=== PATIENT | male | born 1955 | race Caucasian/White ===

== ENCOUNTER 2017-02-24 10:59 | Inpatient (IN) ==
[2017-02-24 15:10] LABS: Basophils % 0.2 % (0.0-0.8); Eosinophils # 0.1 10*3/uL (0.0-0.87); Eosinophils % 0.7 % (0.00-10.9); Hemoglobin 15.5 GM/DL (14.0-18.0); Immature Granulocytes % 0.3 %; Immature Granulocytes Absolute 0.03 #; Lymphocytes # 2.4 10*3/uL (1.4-4.0); Lymphocytes % 25.9 % (21.2-54.2); Mean Corpuscular HGB Conc 33.7 GM/DL (32-36); Mean Corpuscular Hemoglobin 30 PG (27-34); Mean Corpuscular Volume 89.3 FL (87-102); Mean Platelet Volume 9.9 FL (9.6-12.0); Monocytes # 0.8 10*3/uL (0.11-0.8); Monocytes % 8.7 % (1.7-12.7); Neutrophils # 5.9 10*3/uL (1.4-7.4); Neutrophils % 64.2 % (38.7-73.9); Platelet Count 183 T/CUMM (130-400); Red Blood Count 5.15 MC/CUMM (3.8-5.5); Red Cell Distribution Width 12.7 % (9.3-17.3); White Blood Count 9.2 T/CUMM (4-12)
[2017-02-24 15:40] LABS: Albumin 4.1 G/DL (3.4-5.0); Calcium 8.8 MG/DL (8.5-10.1); Osmolality,Calculated 278.4 MOS/KG (273-304); Potassium 4.1 MMOL/L (3.5-5.1); Total Protein 7.2 G/DL (6.4-8.3)
[2017-02-24 15:45] LABS: PT Patient Result 10.9 SECS
--- NOTE | 2017-02-24 17:18 | CT Report ---
CT abdomen pelvis Indication: Abdominal pain periumbilical area with possible hernia Comparison: None available Technique: Axial CT imaging of the abdomen and pelvis is performed with intravenous and oral contrast. Contrast dose is 100 cc of Omnipaque 350. Findings: Cardiac and lung bases are within normal limits CT abdomen: The liver spleen pancreas and adrenal glands are normal in size and enhancement. No evidence of focal lesion is demonstrated in these solid organs. Kidneys are normal in size and enhancement. No evidence of hydronephrosis or nephrolithiasis is seen. Distended loops of proximal small bowel are present with umbilical hernia present containing a loop of small bowel. The distal small bowel caliber is normal from this point. No wall thickening or adjacent inflammatory change is seen. No evidence of free fluid or free air is present. CT pelvis: The pelvic bowel appears within normal limits. Bladder shows no evidence of abnormality. The pelvic organs show no evidence of abnormality Impression: Umbilical hernia with distended loops of small bowel proximal to the hernia consistent with at least partial obstruction. This CT exam was performed using one or more the following dose reduction techniques: Automated exposure control, adjustment of the MA and/or KV according to patient size, or use of iterative reconstruction technique. PROCEDURE INTERPRETED AT [facility] DEPARTMENT OF RADIOLOGY Final Report Signed by: Dr. Derik Miller
[2017-02-24] MEDS ORDERED: PROMETHAZINE INJ 25 MG in SODIUM CHLORIDE 0.9% 50 ML IV STA (18:05)
[2017-02-24] MEDS ORDERED: MORPHINE 2 MG/1 ML SYRINGE IV STA (18:05)
[2017-02-24] MEDS ORDERED: SODIUM CHLORIDE 0.9% 500 ML IV STA (18:05)
[2017-02-24] MEDS ORDERED: MORPHINE 2 MG/1 ML SYRINGE ONE (18:10)
[2017-02-24] MEDS ORDERED: PROMETHAZINE 25 MG/1 ML VIAL ONE (18:10)
--- NOTE | 2017-02-24 19:10 | General Surg History&Physical ---
Assessment and Plan (1) Incarcerated incisional hernia Status: Acute Assessment and plan: Impression: Incarcerated incisional hernia Plan: I discussed options with the patient but feel that given his history and the CT scan showing small bowel obstruction and the hernia that we should proceed with repair. Discussed the option of waiting until Eliquis wears off but that he might have or develop bowel compromise which could cause further deterioration in his health. We discussed the procedure counts performed and the anticipated recovery. Risk of the procedure including bleeding, infection, damage to surrounding structures, need for further surgery, mesh infection, higher risk of bleeding due to the Eliquis, possible need for bowel resection and possible anastomotic leak were all discussed in detail. He would like to proceed with surgery as soon as possible. Current Visit: Yes History of Present Illness Chief complaint: Abdominal pain, constipation History of present illness: Mr. Jones is a 61 year old male who had a laparoscopic cholecystectomy in the distant past. He says that his incision opened up same day he had surgery and required re-stapling. He noticed a hernia near his umbilicus approximately 2 years ago but did not seek any treatment. Several days ago he became more distended and constipated and took some magnesium citrate which only might his pain worsen. Has not had a normal bowel movement in 4-5 days. He has a lot of nausea but has had no vomiting thus far. His pain is located near the umbilicus. He has a history of A. fib and is on Eliquis. His last dose was early this morning. Home Medications Medication Instructions Recorded Confirmed Type Sotalol HCl [Sotalol] 160 mg PO BID #60 tablet 04/22/15 02/24/17 Rx Apixaban [Eliquis] 1 tablet PO BID 04/24/15 02/24/17 History Diltiazem Cd Cap [Cardizem CD] 120 mg PO BID #60 capsule 04/26/15 02/24/17 Rx Allergies Allergy/AdvReac Type Severity Reaction Status Date / Time Cephalosporins Allergy HIVES Verified 02/24/17 11:35 Medical,Surgical,& Family Hx - Medical History Cardio: History of: Cardiac Dysrhythmia (AFIB), CHF, Hypertension No history of: [place] Psychological: History of: Psychiatric/Substance Abuse Tx (alcohol abuse) Neurology: No history of: Seizures Respiratory: History of: Obstructive Sleep Apnea (uses cpap) Genitourinary: History of: Prostate Problems (bph) Gastrointestinal: History of: GERD, GI Problems (constipation) No history of: Hepatitis, Liver Problems, Polyps Hematology: No history of: Blood Transfusion Reaction Other: History of: Miscellaneous Medical Problems (sleep apnea) No history of: Anesthesia Reactions (headache, nausea), Cancer - Surgical History Cardiac Surgeries: Patient Denies: Cardiac Catheterization Abdominal Surgeries: Surgical HX of: Cholecystectomy, EGD Patient denies: Appendectomy, Hernia Repair Orthopedic Surgeries: Patient denies;: Orthopedic Surgery - Family History Family History: Reports;: Family Cancer (MOTHER, FATHER), Family Heart Disease ( MOTHER), Family Stroke (FATHER) Denies;: Family Diabetes - Social History Smoking Status: Former smoker Frequency of Alcohol Use: None Type of Drug Use: None Exam - Constitutional Vitals: Period Temp Pulse Resp BP Sys/[place] Pulse Ox Last 24 Hr 98.3 F-98.3 F 82-82 18-18 125-125/83-83 95 General appearance: no acute distress - Head Head exam: Present: normocephalic - ENT Mouth exam: Present: normal external inspection - Neck Neck exam: Present: normal inspection - Respiratory Respiratory exam: Present: clear to auscultation bilaterally - Cardiovascular Cardiovascular exam: Present: RRR (Not currently in A. fib) - GI/Abdominal GI/Abdominal exam: Present: soft (No peritoneal signs. Very tender just above the umbilicus. There is some slight redness to the skin in this area. An incarcerated hernia is appreciated and unable to be reduced. Possibly mildly distended but he is obese and difficult to fully appreciate that.) - Extremities Exam Extremities exam: Present: normal inspection - Back Exam Back exam: Present: normal inspection - Neurological Exam Neurological exam: Present: alert, oriented X3 Speech: Present: normal - Skin Skin exam: Present: normal color 12 point system: reviewed and no additional remarkable complaints except as stated (He denies chest pain and shortness of breath.) Results - Labs CBC & BMP: 02/24/17 14:58 02/24/17 14:58 Lab Results: I have reviewed the past 24 hour labs
--- NOTE | 2017-02-24 20:00 | Emergency Department Note ---
Wilman Ackerman Brittany, am scribing for, and in the presence of, Soren Haynes M.D. 15:00. Dallas Ackerman Howard T, M.D., personally performed the services described in this documentation, ascribed by Aziza Stovall in my presence, and it is both accurate and complete [id number] . Arrival - Arrival Chief Complaint: Abdominal / Flank Pain Stated Complaint: bowel problem,hernia twisted severe abdominal pain ED Nursing Triage Note: PT C/O MID ABD PAIN SINCE YESTERDAY MORNING. STATES PAIN COMES IN WAVES. PT HAS KNOWN HERNIA. STATES HE HAS NOT HAD BM SINCE MONDAY. PT DRANK MAG CITRATE LAST NIGHT WITH NO RESULTS. Mode of Arrival: Ambulatory Limitations: No Limitations Source: Patient Time Seen by Provider: 02/24/17 14:45 - History of Present Illness HPI Narrative: This is a 61 y/o white male, who presents to the ED with c/o abdomen pain which started yesterday. He localizes the abdomen pain to the umbilical area. He reports the abdomen pain comes in "waves". He denies vomiting but notes nausea. He states he states he has not had a BM since last. He drank a whole bottle of Mag Citrate last night and had no results. He states this morning he had a small BM and has 2 others since the first. He states he has had similar Sx in the past and was told to "drink a bottle of something" and the Sx resolved after. PT has no other complaints/pain in the ED at this time. Pt has a PMHx of CHF, HTN, obstructive sleep apnea, BPH, A-fib, and GERD. Pt has had a cholecystectomy, EGD, and colonoscopy. Pt has a family medical Hx of cancer, heart disease, and stroke. Pt is a former smoker. Consistency: intermittent Severity: moderate, similar to previous episodes Allergies/Adverse Reactions: Allergies Allergy/AdvReac Type Severity Reaction Status Date / Time Cephalosporins Allergy HIVES Verified 02/24/17 11:35 Home Medications: Home Medications Medication Instructions Recorded Confirmed Type Sotalol HCl [Sotalol] 160 mg PO BID #60 tablet 04/22/15 02/24/17 Rx Apixaban [Eliquis] 1 tablet PO BID 04/24/15 02/24/17 History Diltiazem Cd Cap [Cardizem CD] 120 mg PO BID #60 capsule 04/26/15 02/24/17 Rx Review of System - Review of System 12 point system: reviewed and no additional remarkable complaints except as stated - Review of System Gastrointestinal: Present: abdominal pain, nausea, constipation. Absent: vomiting Medical,Surgical,& Family Hx - Medical History Cardio: History of: Cardiac Dysrhythmia (AFIB), CHF, Hypertension No history of: [place] Psychological: History of: Psychiatric/Substance Abuse Tx (alcohol abuse) Neurology: No history of: Seizures Respiratory: History of: Obstructive Sleep Apnea (uses cpap) Genitourinary: History of: Prostate Problems (bph) Gastrointestinal: History of: GERD, GI Problems (constipation) No history of: Hepatitis, Liver Problems, Polyps Hematology: No history of: Blood Transfusion Reaction Other: History of: Miscellaneous Medical Problems (sleep apnea) No history of: Anesthesia Reactions (headache, nausea), Cancer - Surgical History Cardiac Surgeries: Patient Denies: Cardiac Catheterization Abdominal Surgeries: Surgical HX of: Cholecystectomy, EGD Patient denies: Appendectomy, Hernia Repair Orthopedic Surgeries: Patient denies;: Orthopedic Surgery - Family History Family History: Reports;: Family Cancer (MOTHER, FATHER), Family Heart Disease ( MOTHER), Family Stroke (FATHER) Denies;: Family Diabetes - Social History Smoking Status: Former smoker Frequency of Alcohol Use: None Type of Drug Use: None Exam Vital Signs: Vital Signs Temperature 98.3 F 02/24/17 15:11 Pulse Rate 82 02/24/17 15:11 Respiratory Rate 18 02/24/17 15:11 Blood Pressure 125/83 02/24/17 15:11 O2 Sat by Pulse Oximetry 95 02/24/17 11:32 - General General appearance: alert, in no apparent distress - Head Head exam: Present: atraumatic, normocephalic, normal inspection - Eye Eye exam: Present: normal appearance, PERRL, EOMI. Absent: scleral icterus, nystagmus, miosis, mydriasis - ENT ENT exam: Present: normal exam, normal oropharynx, mucous membranes moist, TM's normal bilaterally, normal external ear exam - Neck Neck exam: Present: normal inspection, full ROM, trachea midline. Absent: tenderness, meningismus, lymphadenopathy, thyromegaly - Chest Chest inspection: Present: normal inspection, symmetric chest wall rise. Absent : tenderness, rash, abscess - Respiratory Respiratory exam: Present: normal lung sounds bilaterally. Absent: rales, respiratory distress, rhonchi, stridor, wheezes - Cardiovascular Cardiovascular exam: Present: regular rate, normal rhythm, normal heart sounds. Absent: murmur, rubs, gallop, clicks, JVD - Abdominal Exam Abdominal exam: Present: soft, tenderness (Paraumbilical tenderness), normal bowel sounds, hernia (paraumbilical hernia). Absent: distention, guarding, rebound, rigidity - Rectal Exam Rectal exam: Present: deferred - Extremities Exam Extremities exam: Present: normal inspection, full ROM, normal capillary refill. Absent: tenderness, pedal edema, joint swelling, calf tenderness - Back Exam Back exam: Present: normal inspection, full ROM. Absent: tenderness, muscle spasm, rashes - Neurological Exam Neurological exam: Present: alert, oriented X3, CN II-XII intact. Absent: motor sensory deficit - Psychiatric Psychiatric exam: Present: normal affect, normal mood. Absent: depressed, agitated, anxious, flat affect, manic - Skin Skin exam: Present: warm, dry, intact, normal color. Absent: rash, cyanosis, diaphoresis, erythema, pallor, mottled Course Course Narrative: Medical decision making: History exam consistent with hernia causing partial small bowel per CT report therefore general surgeon Dr. Ortiz will evaluate the patient for continued care and disposition. Results - Labs CBC & BMP: 02/24/17 14:58 02/24/17 14:58 Lab Results: I have reviewed the patients labs Labs: Laboratory Tests 02/24/17 02/24/17 02/24/17 14:58 14:58 14:58 WBC 9.2 RBC 5.15 Hgb 15.5 Hct 46.0 MCV 89.3 MCH 30 MCHC 33.7 RDW 12.7 Plt Count 183 MPV 9.9 Neut % (Auto) 64.2 Lymph % (Auto) 25.9 [place] % (Auto) 8.7 Eos % (Auto) 0.7 Baso % (Auto) 0.2 Neut # (Auto) 5.9 Lymph # (Auto) 2.4 [place] # (Auto) 0.8 Eos # (Auto) 0.1 Baso # (Auto) 0.0 Immature Gran % 0.3 Nucleated RBC % 0.0 Immature Gran # 0.03 Nucleated RBCs # 0.00 INR 1.0 PT Patient/Control Mix 10.9 Sodium 140 Potassium 4.1 Chloride 104 Carbon Dioxide 30 Anion Gap 10.1 BUN 9 Creatinine 1.10 GFR Calculation 115 BUN/Creatinine Ratio 8.00 Glucose 116 H Calculated Osmolality 278.4 Calcium 8.8 Total Bilirubin 1.00 AST 17 ALT 21 Alkaline Phosphatase 59 Total Protein 7.2 Albumin 4.1 Globulin 3.1 Albumin/Globulin Ratio 1.3 Lipase 94.0 - Diagnostic Findings Procedure: CT Abdomen and Pelvis: report reviewed by me (Umbilical hernia with distended loops of small bowel approximal to the hernia consistent with at least partial obstruction. ) Disposition Clinical Impression: Small bowel obstruction, Umbilical hernia Case discussed with: patient Disposition: Still a Patient Condition: Stable Time of Disposition: 18:06
[2017-02-24] MEDS ORDERED: ONDANSETRON 4 MG/2 ML VIAL ONE (20:05)
[2017-02-24] MEDS ORDERED: DEXAMETHASONE 10 MG/1 ML VIAL ONE (20:05)
[2017-02-24] MEDS ORDERED: LIDOCAINE 1% 5 ML VIAL ONE (20:05)
[2017-02-24] MEDS ORDERED: ROCURONIUM 100 MG/10 ML VIAL IV ONE (20:05)
[2017-02-24] MEDS ORDERED: GLYCOPYRROLATE 0.4 MG/2 ML VIAL ONE (20:05)
[2017-02-24] MEDS ORDERED: NEOSTIGMINE 10 MG/10 ML VIAL ONE (20:05)
[2017-02-24] MEDS ORDERED: PHENYLEPHRINE 1 MG/10 ML SYRINGE IV ONE (20:05)
[2017-02-24] MEDS ORDERED: PROPOFOL 200 MG/20 ML VIAL IV ONE (20:05)
[2017-02-24] MEDS ORDERED: SUCCINYLCHOLINE 200 MG/10 ML VIAL ONE (20:05)
[2017-02-24] MEDS ORDERED: ceFAZolin 1,000 MG VIAL ONE (20:35)
[2017-02-24] MEDS ORDERED: ACETAMINOPHEN 325 MG TABLET PO PRN (21:39)
[2017-02-24] MEDS ORDERED: MORPHINE 2 MG/1 ML SYRINGE IV PRN (21:39)
[2017-02-24] MEDS ORDERED: ONDANSETRON 4 MG/2 ML VIAL IV PRN (21:39)
[2017-02-24] MEDS: LACTATED RINGERS 1,000 ML IV SCH (21:45)
--- NOTE | 2017-02-24 21:51 | Operative Note ---
Date of procedure: 02/24/17 Pre-op diagnosis: SBO secondary to incarcerated incisional hernia Post-op diagnosis: same Procedure: Procedure performed: #1 repair of incarcerated incisional hernia #2 implantation of program mesh (15 x 9 cm) Procedure in detail: After informed consent was obtained, patient was taken operating suite and laid supine on the operating table. After general anesthesia was induced Loco catheter was placed and the abdomen was prepped and draped in usual sterile fashion. After procedural pause incision was made around the umbilicus and dissection carried down through skin and soft tissue. The hernia sac was encountered just above the umbilicus and it was dissected free from the surrounding subcutaneous tissue as well as the umbilicus. I dissected down to the hernia sac fascial edge border. Next the hernia sac was opened and the contents examined. There was some mesentery along with a small knuckle of small bowel within the sac. The bowel appeared healthy and viable. There is an adhesion from the mesentery to the hernia sac that was lysed. I was then able to place the contents back to within the abdominal cavity. I removed the excess sac and passed it off the field and closed the remaining sac with 3-0 Vicryl suture. The defect was measured and was approximately 3 cm in diameter. The preperitoneal space was then developed circumferentially just under the fascia taking care to avoid any entrance into the abdominal cavity. Once the preperitoneal space was adequately developed a 15 x 9 cm piece of pro- neurology tech mesh was brought onto the field and placed in the preperitoneal space with the sticky side down. There was excellent coverage of the defect. A 10 Kis[place]ili flat Antony drain was then placed over the mesh. I then dissected the fascia away from the subcutaneous tissue circumferentially and closed the defect using #1 interrupted Prolene [id number] sutures. There was excellent hemostasis throughout the procedure. All oozing was treated with electrocautery. Wound was thoroughly irrigated and suctioned. The umbilicus was tacked back down to the fascia using 3-0 Vicryl. Incision closed with ricky. Drain was secured with 2-0 nylon suture. Sterile dressings and abdominal binder placed. Patient was extubated and taken to recovery room in stable condition. All lap and needle counts correct at the end of the case. Anesthesia: GETA Surgeon / Physician: Con Wynne Estimated blood loss: other (10 cc) Specimens: other (Hernia sac) Condition: stable Disposition: PACU Results - Labs CBC & BMP: 02/24/17 14:58 02/24/17 14:58 Discharge Plan - Discharge Data Disposition: Still a Patient - Discharge Medications No Action Sotalol HCl [Sotalol] 160 mg PO BID #60 tablet Apixaban [Eliquis] 1 tablet PO BID Diltiazem Cd Cap [Cardizem CD] 120 mg PO BID #60 capsule - Follow Up or Referral - Forms/Instructions
--- NOTE | 2017-02-24 22:02 | Anesthesia Post-Op ---
Anesthesia Post OP - Post Ansesthetic Evaluation Patient seen in post op: Yes Resp: within normal limits CV: within normal limits Mental: within normal limits Temp: within normal limits [id number]: within normal limits Nausea and Vomiting: within normal limits Pain: within normal limits
[2017-02-24] MEDS ORDERED: MIDAZOLAM 2 MG/2 ML VIAL ONE (22:05)
[2017-02-24] MEDS ORDERED: SCOPOLAMINE 1.5 MG PATCH TRANSDERM ONE (22:05)
[2017-02-24] MEDS ORDERED: fentaNYL 100 MCG/2 ML VIAL ONE (22:05)
[2017-02-24] MEDS ORDERED: SEVOFLURANE 1 UNIT/15 MINUTE INH ONE (22:05)
[2017-02-24] MEDS ORDERED: ACETAMINOPHEN 1,000 MG/100 ML VIAL IV ONE (22:06)
[2017-02-24] MEDS ORDERED: LACTATED RINGERS 3,000 ML IV ONE (22:06)
[2017-02-24 22:48] LABS: Apearance,Urine CLEAR (Clear); Bilirubin,Urine Negative (Negative); Blood, Urine Negative (Negative); Glucose,Urine (UA) Negative (Negative); Ketones,Urine Negative (Negative); Nitrite,Urine Negative (Negative); Protein,Urine Negative; RBC,Urine 1 /HPF (0-4); Squamous Epithelial Cell,Urine Occasional /HPF (0-10); Urine Color Yellow (Yellow); Urine Specific Gravity 1.029 (1.001-1.035); Urine Urobilinogen < 2.0 EU/DL (0.2-1.0); WBC,Urine <1 /HPF (0-6)
[2017-02-25] MEDS: KETOROLAC 30 MG/1 ML VIAL IV SCH ×4 (00:31→18:41)
[2017-02-25] MEDS: LACTATED RINGERS 1,000 ML IV SCH ×2 (04:00→21:18)
[2017-02-25 08:15] LABS: Hematocrit 43.3 VOL% (42.0-52.0); Hemoglobin 14.8 GM/DL (14.0-18.0); Immature Granulocytes % 0.4 %; Immature Granulocytes Absolute 0.04 #; Lymphocytes # 1.1 10*3/uL (1.4-4.0); Lymphocytes % 10.7 % (21.2-54.2); Mean Corpuscular HGB Conc 34.2 GM/DL (32-36); Mean Corpuscular Hemoglobin 31 PG (27-34); Mean Corpuscular Volume 89.1 FL (87-102); Mean Platelet Volume 10.2 FL (9.6-12.0); Monocytes # 0.2 10*3/uL (0.11-0.8); Monocytes % 1.6 % (1.7-12.7); Neutrophils # 8.6 10*3/uL (1.4-7.4); Neutrophils % 87.3 % (38.7-73.9); Platelet Count 175 T/CUMM (130-400); Red Blood Count 4.86 MC/CUMM (3.8-5.5); Red Cell Distribution Width 12.8 % (9.3-17.3); White Blood Count 9.8 T/CUMM (4-12)
[2017-02-25 08:36] LABS: Calcium 8.3 MG/DL (8.5-10.1); Osmolality,Calculated 280.4 MOS/KG (273-304); Potassium 4.6 MMOL/L (3.5-5.1)
--- NOTE | 2017-02-25 10:18 | Cardiology Consult Note ---
Assessment and Plan (1) Atrial fibrillation Status: Acute Assessment and plan: 1. 61-year-old significant overweight WF with hypertension, and apparent persistent atrial fibrillation (he was cardioverted successfully June 2016 , but reports he converted back 2 days later atrial fibrillation, has not followed with Dr. bruce since), he is status post emergency surgery for ventral hernia with bowel obstruction last night performed approximate 12 hours after his last Eliquis dose (on 5 mg twice daily) without evidence of significant bleeding problems. 2. He is n.p.o. 3. Resume Eliquis 5 mg twice daily when felt safe from a postsurgical standpoint. This will be more than another 24-48 hours, would give low-dose Lovenox 40 mg daily. 4. September 2014 he had EF 54% by myocardial scan (no ischemia), and EF 45-50% by echo 5. JORGE, but reports he is using his CPAP regularly. 6. History of noncompliance, particularly is not followed up. He would benefit from seeing Dr. penaloza in the weeks after discharge. 7. He is probably a reasonable candidate for atrial fibrillation ablation as he feels much better when he is in rhythm 8. If he develops RVR, and cannot take p.o. would start diltiazem infusion as per protocol. He could be transferred to telemetry if needed to facilitate this. 9. His rhythm is irregular and I presume he is in atrial fibrillation; check EKG to confirm. Current Visit: Yes (2) Obstructive sleep apnea Status: Acute Current Visit: No (3) Chronic hypertension Status: Chronic Current Visit: No (4) Chronic anticoagulation Status: Chronic Current Visit: No (5) Small bowel obstruction Status: Acute Current Visit: Yes History of Present Illness - Consult Narrative History of present illness: Mr. Jones is a 61 year old male previously followed by Dr. penaloza, although he is not followed up with him since June 2016. He had cardioversion at that time he was on sotalol and Eliquis. He reports that he converted back to atrial fibrillation 2 days after his cardioversion at that time. However he is continued on Eliquis and sotalol. He has had a ventral hernia but developed obstructive requiring urgent surgery last night. He had last had Eliquis 12 hours before but apparently has not had any significant bleeding from surgery. He is supine and n.p.o. currently. He is having no chest pain shortness of breath or palpitations. He did say he felt better when he was in rhythm. CC: Con Lerma MD - Home Medications and Allergies Home Medications: Home Medications Medication Instructions Recorded Confirmed Type Sotalol HCl [Sotalol] 160 mg PO BID #60 tablet 04/22/15 02/24/17 Rx Apixaban [Eliquis] 1 tablet PO BID 04/24/15 02/24/17 History Diltiazem Cd Cap [Cardizem CD] 120 mg PO BID #60 capsule 04/26/15 02/24/17 Rx Allergies/Adverse Reactions: Allergies Allergy/AdvReac Type Severity Reaction Status Date / Time Cephalosporins Allergy HIVES Verified 02/24/17 11:35 Medical,Surgical,& Family Hx - Medical History Cardio: History of: Cardiac Dysrhythmia (AFIB), CHF, Hypertension No history of: [place] Psychological: History of: Psychiatric/Substance Abuse Tx (alcohol abuse) Neurology: No history of: Seizures Respiratory: History of: Obstructive Sleep Apnea (uses cpap) Genitourinary: History of: Prostate Problems (bph) Gastrointestinal: History of: GERD, GI Problems (constipation) No history of: Hepatitis, Liver Problems, Polyps Hematology: No history of: Blood Transfusion Reaction Other: History of: Miscellaneous Medical Problems (sleep apnea) No history of: Anesthesia Reactions (headache, nausea), Cancer - Surgical History Cardiac Surgeries: Patient Denies: Cardiac Catheterization Abdominal Surgeries: Surgical HX of: Cholecystectomy, EGD Patient denies: Appendectomy, Hernia Repair Orthopedic Surgeries: Patient denies;: Orthopedic Surgery - Family History Family History: Reports;: Family Cancer (MOTHER, FATHER), Family Heart Disease ( MOTHER), Family Stroke (FATHER) Denies;: Family Diabetes - Social History Smoking Status: Former smoker Frequency of Alcohol Use: None Type of Drug Use: None Physical Examination Vital Signs Temp Pulse Resp BP Pulse Ox 98.3 F 82 18 125/83 95 02/24/17 11:32 02/24/17 11:32 02/24/17 11:32 02/24/17 11:32 02/24/17 11:32 General: Present: Appears Well, No Apparent Distress Neck: Present: Supple Neck Cardiac: Present: Irregularly Regular, No Murmur Lungs: Present: Normal Exam, Clear Ascult./Percussion, Other (Supine) Abdomen: Present: Tender Extremities: Present: +1 Edema (Trace to 1+ edema in the left greater than right ) Result/EKG - Labs CBC & BMP: 02/25/17 07:57 02/25/17 07:57 Labs: Laboratory Results - last 24 hr 02/25/17 02/25/17 07:57 07:57 WBC 9.8 RBC 4.86 Hgb 14.8 Hct 43.3 MCV 89.1 MCH 31 MCHC 34.2 RDW 12.8 Plt Count 175 MPV 10.2 Neut % (Auto) 87.3 H Lymph % (Auto) 10.7 L [place] % (Auto) 1.6 L Eos % (Auto) 0.0 Baso % (Auto) 0.0 Neut # (Auto) 8.6 H Lymph # (Auto) 1.1 L [place] # (Auto) 0.2 Eos # (Auto) 0.0 Baso # (Auto) 0.0 Immature Gran % 0.4 Nucleated RBC % 0.0 Immature Gran # 0.04 Nucleated RBCs # 0.00 Sodium 140 Potassium 4.6 Chloride 106 Carbon Dioxide 28 Anion Gap 10.6 BUN 9 Creatinine 1.10 GFR Calculation 117 BUN/Creatinine Ratio 8.00 Glucose 153 H Calculated Osmolality 280.4 Calcium 8.3 L Quality Measures - VTE Contraindication to Pharmacological VTE Prophylaxis: High Risk of Bleeding
--- NOTE | 2017-02-25 10:41 | EKG Report ---
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
[2017-02-25] MEDS: SOTALOL 80 MG TABLET PO SCH ×2 (13:29→21:28)
[2017-02-25] MEDS: PANTOPRAZOLE 40 MG TABLET PO SCH (13:30)
[2017-02-25] MEDS: DILTIAZEM CD 120 MG CAPSULE PO SCH ×2 (13:30→21:28)
--- NOTE | 2017-02-25 14:55 | Event Note ---
Afebrile vital signs stable. Patient is doing very well. He is status post repair of incarcerated hernia. He is hungry. He has no nausea or vomiting. Says he overall feels much better. His abdomen is soft appropriately tender and nondistended. Incision looks good. JUAN drain with minimal serosanguineous output. Labs are okay. Will stop his IV fluids and start him on clear liquid diet. He will begin ambulating. DC his Loco. We will plan to start Eliquis tomorrow if he remains stable and there are no signs of bleeding.
[2017-02-26] MEDS: KETOROLAC 30 MG/1 ML VIAL IV SCH ×5 (00:02→23:51)
[2017-02-26 06:23] LABS: Basophils % 0.1 % (0.0-0.8); Hematocrit 43.2 VOL% (42.0-52.0); Hemoglobin 13.9 GM/DL (14.0-18.0); Immature Granulocytes % 0.6 %; Immature Granulocytes Absolute 0.09 #; Lymphocytes % 12.8 % (21.2-54.2); Mean Corpuscular HGB Conc 32.2 GM/DL (32-36); Mean Corpuscular Hemoglobin 30 PG (27-34); Mean Corpuscular Volume 92.9 FL (87-102); Mean Platelet Volume 10.8 FL (9.6-12.0); Monocytes % 6.4 % (1.7-12.7); Neutrophils # 12.4 10*3/uL (1.4-7.4); Neutrophils % 80.1 % (38.7-73.9); Platelet Count 162 T/CUMM (130-400); Red Blood Count 4.65 MC/CUMM (3.8-5.5); Red Cell Distribution Width 13.2 % (9.3-17.3); White Blood Count 15.4 T/CUMM (4-12)
[2017-02-26] MEDS: PANTOPRAZOLE 40 MG TABLET PO SCH (09:18)
[2017-02-26] MEDS: SOTALOL 80 MG TABLET PO SCH ×2 (09:18→20:58)
[2017-02-26] MEDS: APIXABAN 5 MG TABLET PO SCH ×2 (09:19→20:58)
[2017-02-26] MEDS: DILTIAZEM CD 120 MG CAPSULE PO SCH ×2 (09:19→20:58)
--- NOTE | 2017-02-26 11:19 | Cardiology Progress Note ---
Assessment and Plan (1) Atrial fibrillation Status: Acute Assessment and plan: 1. 61-year-old significant overweight WF with hypertension, and apparent persistent atrial fibrillation (he was cardioverted successfully June 2016 , but reports he converted back 2 days later atrial fibrillation, has not followed with Dr. castañeda since), he is status post emergency surgery for ventral hernia with bowel obstruction last night performed approximate 12 hours after his last Eliquis dose (on 5 mg twice daily) without evidence of significant bleeding problems. 2. He is n.p.o. 3. Resume Eliquis 5 mg twice daily when felt safe from a postsurgical standpoint. This will be more than another 24-48 hours, would give low-dose Lovenox 40 mg daily. 4. September 2014 he had EF 54% by myocardial scan (no ischemia), and EF 45-50% by echo 5. JORGE, but reports he is using his CPAP regularly. 6. History of noncompliance, particularly is not followed up. He would benefit from seeing Dr. penaloza in the weeks after discharge. 7. He is probably a reasonable candidate for atrial fibrillation ablation as he feels much better when he is in rhythm 8. If he develops RVR, and cannot take p.o. would start diltiazem infusion as per protocol. He could be transferred to telemetry if needed to facilitate this. 9. His rhythm is irregular and I presume he is in atrial fibrillation; check EKG to confirm. February 26, 2017 update: 1. Mr. Jones is doing well postoperatively still with drain in place 2. Persistent atrial fibrillation, until diltiazem and sotalol follow Dr. penaloza; continue these for now; he may be a candidate for ablation, particularly as he is symptomatic? 3. Discussed with surgical service, and will resume Eliquis twice daily 5 mg 4. Follow with Dr. penaloza in approximately 2 weeks time Current Visit: Yes (2) Obstructive sleep apnea Status: Acute Current Visit: No (3) Chronic hypertension Status: Chronic Current Visit: No (4) Chronic anticoagulation Status: Chronic Current Visit: No (5) Small bowel obstruction Status: Acute Current Visit: Yes Cardiology - PN: Subj Interval history: Mr. Mancuso is feeling much better, he examining the room without difficulty. He still has a drain in. He is not having chest pain palpitation or shortness of breath. He has not had any bleeding. Exam (Progress Note) - Constitutional Vitals: Period Temp Pulse Resp BP Sys/Lipscomb Pulse Ox Last 24 Hr 97.5 F-98.8 F 70-89 16-20 103-120/56-76 93-98 General appearance: no acute distress, over weight - Head Head exam: Present: normal inspection, normocephalic, atraumatic - Neck Neck exam: Present: normal inspection - Respiratory Respiratory exam: Present: clear to auscultation bilaterally. Absent: rhonchi, stridor, wheezes - Cardiovascular Cardiovascular exam: Present: regular rate and rhythm. Absent: diastolic murmur , rubs, systolic murmur - GI/Abdominal GI/Abdominal exam: Present: tenderness, soft - Extremities Exam Extremities exam: Present: edema (1+ bilateral lower extremity edema) Result/EKG - Labs CBC & BMP: 02/26/17 05:43 02/25/17 07:57 Labs: Laboratory Results - last 24 hr 02/26/17 05:43 WBC 15.4 H D RBC 4.65 Hgb 13.9 L Hct 43.2 MCV 92.9 MCH 30 MCHC 32.2 RDW 13.2 Plt Count 162 MPV 10.8 Neut % (Auto) 80.1 H Lymph % (Auto) 12.8 L [place] % (Auto) 6.4 Eos % (Auto) 0.0 Baso % (Auto) 0.1 Neut # (Auto) 12.4 H Lymph # (Auto) 2.0 [place] # (Auto) 1.0 H Eos # (Auto) 0.0 Baso # (Auto) 0.0 Immature Gran % 0.6 Nucleated RBC % 0.0 Immature Gran # 0.09 Nucleated RBCs # 0.00 Quality Measures - VTE Contraindication to Pharmacological VTE Prophylaxis: High Risk of Bleeding Specialty Discharge - Follow Up or Referrals Follow up with: Valdo Castañeda MD [Physician] - (Follow-up 2 weeks with [facility] CMP CBC TSH EKG "postop follow-up, consider atrial fibrillation ablation?")
--- NOTE | 2017-02-26 11:53 | Event Note ---
Afebrile vital signs stable. Patient has no complaints and is feeling well. He is tolerating diet. Had normal bowel movement this morning. His pain is well controlled. His abdomen is soft and appropriately tender at the incision. There is some slight ischemia near the umbilicus. There is no erythema or sign of infection. JUAN drain with minimal serosanguineous output. White blood cell count elevated today. We will recheck his CBC in the morning. Start Eliquis.
[2017-02-27 05:13] LABS: Basophils % 0.1 % (0.0-0.8); Eosinophils % 0.1 % (0.00-10.9); Hematocrit 39.6 VOL% (42.0-52.0); Immature Granulocytes % 0.8 %; Immature Granulocytes Absolute 0.07 #; Lymphocytes # 2.6 10*3/uL (1.4-4.0); Lymphocytes % 30.9 % (21.2-54.2); Mean Corpuscular HGB Conc 32.8 GM/DL (32-36); Mean Corpuscular Hemoglobin 30 PG (27-34); Mean Corpuscular Volume 91.5 FL (87-102); Mean Platelet Volume 10.6 FL (9.6-12.0); Monocytes # 0.7 10*3/uL (0.11-0.8); Monocytes % 7.9 % (1.7-12.7); Neutrophils # 5.1 10*3/uL (1.4-7.4); Neutrophils % 60.2 % (38.7-73.9); Platelet Count 163 T/CUMM (130-400); Red Blood Count 4.33 MC/CUMM (3.8-5.5); Red Cell Distribution Width 13.2 % (9.3-17.3); White Blood Count 8.5 T/CUMM (4-12)
[2017-02-27] MEDS: KETOROLAC 30 MG/1 ML VIAL IV SCH ×2 (06:01→12:45)
--- NOTE | 2017-02-27 07:34 | Cardiology Progress Note ---
Cardiology - PN: Subj Interval history: Cardiology note Postop day #3 repair incarcerated incisional hernia and implantation of mesh. No temperature No nausea Decreased breath sounds Irregular rhythm no murmur Trace ankle edema White count 8.5 Hemoglobin 13.0 hematocrit 39.6 Impression Status post repair incarcerated incisional hernia with mesh Obstructive sleep apnea Hypertension Recurrent atrial fibrillation Status post cardioversion June 2016 Noncompliance with medical follow-up Chronic anticoagulation Plan Wound care CPAP Continue sotalol 160 mg twice daily and diltiazem 120 mg twice daily Eliquis restarted Exam (Progress Note) - Constitutional Vitals: Period Temp Pulse Resp BP Sys/Lipscomb Pulse Ox Last 24 Hr 97.5 F-98.4 F 62-80 18-22 104-130/66-80 93-98 Result/EKG - Labs CBC & BMP: 02/27/17 04:18 02/25/17 07:57 Labs: Laboratory Results - last 24 hr 02/27/17 04:18 WBC 8.5 D RBC 4.33 Hgb 13.0 L Hct 39.6 L MCV 91.5 MCH 30 MCHC 32.8 RDW 13.2 Plt Count 163 MPV 10.6 Neut % (Auto) 60.2 Lymph % (Auto) 30.9 [place] % (Auto) 7.9 Eos % (Auto) 0.1 Baso % (Auto) 0.1 Neut # (Auto) 5.1 Lymph # (Auto) 2.6 [place] # (Auto) 0.7 Eos # (Auto) 0.0 Baso # (Auto) 0.0 Immature Gran % 0.8 Nucleated RBC % 0.0 Immature Gran # 0.07 Nucleated RBCs # 0.00 Quality Measures - VTE Contraindication to Pharmacological VTE Prophylaxis: High Risk of Bleeding Specialty Discharge - Follow Up or Referrals Follow up with: Valdo Castañeda MD [Physician] - (Follow-up 2 weeks with [facility] CMP CBC TSH EKG "postop follow-up, consider atrial fibrillation ablation?")
[2017-02-27] MEDS: DILTIAZEM CD 120 MG CAPSULE PO SCH (08:50)
[2017-02-27] MEDS: SOTALOL 80 MG TABLET PO SCH (08:50)
[2017-02-27] MEDS: APIXABAN 5 MG TABLET PO SCH (08:51)
[2017-02-27] MEDS: PANTOPRAZOLE 40 MG TABLET PO SCH (08:51)
--- NOTE | 2017-02-27 10:19 | Discharge Summary ---
Hospital Course - Hospital Course Hospital Course: The patient is a 61-year-old male who underwent Repair of incarcerated incisional hernia with implantation of mesh with associated small bowel obstruction. The patient tolerated the procedure well without complication to note. Cardiology consultation was required as patient was on Eliquis for history of A. fib. Also history of noncompliance with him. He transition on and off his Eliquis without complication. He should continue his Eliquis and follow with cardiology as scheduled. The patient had JUAN drain persistent with appropriately decreasing output which was to remain until his follow-up appointment. Abdominal binder recommended. Patient with possible, small amount of periumbilical ischemia, but the skin skin was clean, dry and intact the time of discharge. She was discharged home in good condition. Diagnosis - Discharge Diagnosis (1) Incarcerated incisional hernia Status: Acute (2) Small bowel obstruction Status: Acute (3) Obstructive sleep apnea Status: Acute (4) recurrent atrial fibrillation Status: Acute Specialty Discharge - Follow Up or Referrals Follow up with: Con Lerma MD [Physician] - 03/06/17 10:15 am Valdo Castañeda MD [Physician] - 03/15/17 8:00 am (Follow-up 2 weeks with [facility] CMP CBC TSH EKG "postop follow-up, consider atrial fibrillation ablation?") Discharge Plan - Discharge Data Disposition: Disch To Home/Self Care Condition at Discharge: Stable Discharge Diet: advance to your usual diet Activity: no lifting (>7-10lb) Hygiene: may shower Driving: other (No driving while taking narcotics) Contact your physician if you experience:: fever over 101, Difficulty voiding, Redness or swelling, Nausea/Vomiting, Shortness of breath, Bleeding, pain uncontrolled by pain medications Wound / Dressing Care Instructions: Keep wounds clean and dry. May shower - do not rub, soak or submerge wounds. Change drain dressing daily. Empty Drain twice daily - record amount of fluid emptied. Bring record to f/u appt with Dr. Lerma. - Discharge Medications New HYDROcodone/ACETAMIN 7.5-325 [Pepin 7.5-325] 1 tablet PO Q4H PRN #30 tablet PRN Reason: Pain Moderate To Severe (4-10) Continue Sotalol HCl [Sotalol] 160 mg PO BID #60 tablet Apixaban [Eliquis] 1 tablet PO BID Diltiazem Cd Cap [Cardizem CD] 120 mg PO BID #60 capsule - Follow Up or Referral Follow Up: Con Lerma MD [Physician] - 03/06/17 10:15 am Valdo Castañeda MD [Physician] - 03/15/17 8:00 am (Follow-up 2 weeks with [facility] CMP CBC TSH EKG "postop follow-up, consider atrial fibrillation ablation?") - Forms/Instructions Instructions: Laparoscopic Herniorrhaphy (DC), Bowel Obstruction (DC), Abdominal Binder (DC), Raul J-P Drain Care Instructions Additional Discharge Instructions: Wear abdominal binder at all times Exam - Constitutional Vitals: Period Temp Pulse Resp BP Sys/Lipscomb Pulse Ox Last 24 Hr 96.9 F-98.4 F 62-80 18-22 114-130/67-80 93-96 General appearance: no acute distress, morbidly obese - Head Head exam: Present: normal inspection, normocephalic, atraumatic - Eye Eye exam: Absent: conjunctival injection, scleral icterus - Respiratory Respiratory exam: Present: clear to auscultation bilaterally - Cardiovascular Cardiovascular exam: Present: regular rate and rhythm - GI/Abdominal GI/Abdominal exam: Present: normal bowel sounds, tenderness (Appropriate p/o tenderness. ), soft, other (Surgical incision clean, dry and intact with ricky intact. Early evidence of ischemia along the left lateral border of the umbilicus without eschar formation. JUAN drain site is clean and dry. JUAN drain with minimal serosanguineous output.). Absent: distended - Extremities Exam Extremities exam: Absent: calf tenderness, edema - Neurological Exam Neurological exam: Present: alert, oriented X3 - Psychiatric Psychiatric exam: Present: normal affect, normal mood - Skin Skin exam: Present: normal color, warm Discharge Results Procedures and tests throughout hospitalization: Repair of incarcerated incisional hernia with mesh placement Labs on day of discharge: Labs from last 24 hours 02/27/17 04:18 WBC 8.5 D RBC 4.33 Hgb 13.0 L Hct 39.6 L MCV 91.5 MCH 30 MCHC 32.8 RDW 13.2 Plt Count 163 MPV 10.6 Neut % (Auto) 60.2 Lymph % (Auto) 30.9 [place] % (Auto) 7.9 Eos % (Auto) 0.1 Baso % (Auto) 0.1 Neut # (Auto) 5.1 Lymph # (Auto) 2.6 [place] # (Auto) 0.7 Eos # (Auto) 0.0 Baso # (Auto) 0.0 Immature Gran % 0.8 Nucleated RBC % 0.0 Immature Gran # 0.07 Nucleated RBCs # 0.00 DS: Provider Date of admission: 02/24/17 21:39 Primary care physician: . No PCP Attending physician on admission: Con Lerma MD Consults: Cardiology: Dr. Castañeda Discharging clinician: Anita Payne PA-C
[2017-02-27 11:43] VITALS: BP 132/78
== END 2017-02-27 15:58 | disposition home or self-care (01) | DRG 354 ==
LOC: N.ED 10:59 → N.3E 21:39
PROVIDERS: ADMIT Surgery; ATTEND Surgery